=== PATIENT | female | born 1990 | race Two or more races ===

== ENCOUNTER 2016-05-20 11:58 | Emergency (ER) | payer MEDICAID ==
[~2016-05-20] VITALS: Ht 162.6 cm; Wt 108.9 kg
[2016-05-20 12:50] LABS: Basophils # (auto) 0.1 uL; Basophils % (auto) 0.6 % (0.0-2.0); Eosinophils # (auto) 0.2 uL; Eosinophils % (auto) 2.3 % (0.0-7.0); Hematocrit 36.4 % (36.0-46.0); Hemoglobin 11.9 g/dL (12.2-16.2); Lymphocytes # (auto) 2.7 uL; Lymphocytes % (auto) 25.4 % (10.0-50.0); Mean Corpuscular Hemoglobin 28.9 pg (28.0-32.0); Mean Corpuscular Hgb Conc. 32.7 g/dL (32.0-36.0); Mean Corpuscular Volume 88.4 fL (80.0-100.0); Mean Platelet Volume 11.1 fL (7.4-10.4); Monocytes # (auto) 0.8 uL; Monocytes % (auto) 7.6 % (0.0-12.0); Neutrophils # (auto) 6.7 uL; Neutrophils % (auto) 64.1 % (37.0-80.0); Platelet Count (auto) 253 10^3/uL (140-450); Red Cell Distribution Width 13.9 % (11.6-16.0); SUSPECT VIEW TRANSMISSION; White Blood Cell 10.5 10^3/uL (4.4-10.8)
[2016-05-20 13:04] LABS: Albumin 3.1 g/dL (3.4-5.0); BUN/Creatinine Ratio 21.5; Bilirubin, Total 0.4 mg/dL (0.2-1.0); Calcium 8.8 mg/dL (8.5-10.1); Potassium 3.5 mmol/L (3.5-5.1); Total Protein 7.4 g/dL (6.4-8.2)
[2016-05-20] MEDS: SODIUM CHLORIDE 0.9% 1,000 ML IV ONE (17:09)
[2016-05-20 17:24] LABS: Amylase 87 U/L (25-115)
[2016-05-20 18:29] LABS: Urine Bilirubin Negative (Negative); Urine Color Yellow (Yellow); Urine Ketone TRACE (Negative); Urine Mucus FEW (None Seen); Urine Nitrite Negative (Negative); Urine RBC 15 /hpf (0 - 4); Urine Squamous Epithelial Cell FEW /hpf (<5); Urine Urobilinogen Normal (Negative); Urine pH 6.5 (5.0-8.0)
[2016-05-20 18:30] LABS: Urine Blood 1+ /uL (Negative); Urine Glucose 2+ mg/dL (Normal)
[2016-05-20] MEDS: NITROFURANTOIN (MONO) 100 mg CAP PO ONE ×2 (19:37→19:45)
[2016-05-20 20:04] VITALS: BP 119/75
== END 2016-05-20 20:04 | disposition home or self-care (01) ==
LOC: EDBD 11:58 → ER 12:03
DX: N39.0 Urinary tract infection, site not specified (principal); Z88.6 Allergy status to analgesic agent
CPT/HCPCS: 36415; 80053; 81001; 82150; 83690; 84702; 85025; 87040; 96360; 96361

== ENCOUNTER 2016-06-02 11:10 | Emergency (ER) | payer MEDICAID ==
[~2016-06-02] VITALS: Ht 165.1 cm; Wt 104.3 kg
[2016-06-02] MEDS ORDERED: SODIUM CHLORIDE 0.9% 1,000 ML IVB ONE (11:33)
[2016-06-02 12:35] LABS: Basophils # (auto) 0 uL; Basophils % (auto) 0.4 % (0.0-2.0); Eosinophils # (auto) 0.3 uL; Hematocrit 32.5 % (36.0-46.0); Hemoglobin 10.5 g/dL (12.2-16.2); Lymphocytes # (auto) 2.3 uL; Lymphocytes % (auto) 30.9 % (10.0-50.0); Mean Corpuscular Hgb Conc. 32.2 g/dL (32.0-36.0); Mean Platelet Volume 11.3 fL (7.4-10.4); Monocytes # (auto) 0.7 uL; Monocytes % (auto) 9.6 % (0.0-12.0); Neutrophils # (auto) 4.1 uL; Neutrophils % (auto) 55.1 % (37.0-80.0); Platelet Count (auto) 206 10^3/uL (140-450); Red Cell Distribution Width 13.7 % (11.6-16.0); White Blood Cell 7.4 10^3/uL (4.4-10.8)
[2016-06-02 13:51] VITALS: BP 109/64
== END 2016-06-02 14:01 | disposition home or self-care (01) ==
LOC: EDBD 11:10 → ER 11:15
DX: N93.8 Other specified abnormal uterine and vaginal bleeding (principal); E11.9 Type 2 diabetes mellitus without complications; I10 Essential (primary) hypertension; Z88.6 Allergy status to analgesic agent; R19.7 Diarrhea, unspecified
CPT/HCPCS: 36415; 84702; 85025; 94761; 96360; 96361; 99285; J7030

== ENCOUNTER 2016-06-09 09:31 | Emergency (ER) | payer MEDICAID ==
[~2016-06-09] VITALS: Ht 160 cm; Wt 99.8 kg
[2016-06-09 09:36] VITALS: BP 168/108
[2016-06-09 10:51] LABS: Basophils # (auto) 0.1 uL; Basophils % (auto) 0.6 % (0.0-2.0); Eosinophils # (auto) 0.4 uL; Eosinophils % (auto) 3.7 % (0.0-7.0); Hematocrit 33.6 % (36.0-46.0); Hemoglobin 10.7 g/dL (12.2-16.2); Lymphocytes # (auto) 2.4 uL; Lymphocytes % (auto) 21.2 % (10.0-50.0); Mean Corpuscular Hemoglobin 28.6 pg (28.0-32.0); Mean Corpuscular Hgb Conc. 31.8 g/dL (32.0-36.0); Mean Corpuscular Volume 89.8 fL (80.0-100.0); Mean Platelet Volume 10.1 fL (7.4-10.4); Monocytes # (auto) 0.8 uL; Monocytes % (auto) 7.1 % (0.0-12.0); Neutrophils # (auto) 7.5 uL; Neutrophils % (auto) 67.4 % (37.0-80.0); Platelet Count (auto) 331 10^3/uL (140-450); Red Cell Distribution Width 13.8 % (11.6-16.0); White Blood Cell 11.2 10^3/uL (4.4-10.8)
[2016-06-09 11:01] LABS: Albumin 3.1 g/dL (3.4-5.0); BUN/Creatinine Ratio 23.2; Calcium 9.3 mg/dL (8.5-10.1)
[2016-06-09 11:04] LABS: Bilirubin, Total 0.3 mg/dL (0.2-1.0)
== END 2016-06-09 23:48 | disposition left against medical advice (07) ==
LOC: EDBD 09:31 → ER 09:33
DX: E11.621 Type 2 diabetes mellitus with foot ulcer (principal); Z53.21 Procedure and treatment not carried out due to patient leaving prior to being seen by health care provider
CPT/HCPCS: 36415; 73630; 80053; 85025

== ENCOUNTER 2016-06-10 10:27 | Emergency (ER) | payer MEDICAID ==
[~2016-06-10] VITALS: Ht 167.6 cm; Wt 104.3 kg
[2016-06-10] MEDS ORDERED: VANCOMYCIN 1GM/250ML D5W 250 ML IV ONE ×2 (13:15→15:00)
[2016-06-10] MEDS ORDERED: HYDROcodone-ACET 10/325MG TAB PO ONE (13:15)
[2016-06-10] MEDS ORDERED: PIPERACILLIN-TAZOB 3.375GM 100 ML IV ONE (13:15)
[2016-06-10] MEDS ORDERED: SODIUM CHLORIDE 0.9% 1,000 ML IV ONE (13:15)
[2016-06-10 14:16] VITALS: BP 149/49
[2016-06-10] MEDS ORDERED: SODIUM CHLORIDE 0.9% 1,000 ML IV SCH (14:17)
[2016-06-10] MEDS ORDERED: DEXTROSE (50%) 50ML SYRG IV PRN (14:30)
[2016-06-10] MEDS ORDERED: LORazepam 0.5 MG TAB PO PRN (14:30)
[2016-06-10] MEDS ORDERED: ACETAMINOPHEN 500 MG TAB PO PRN (14:30)
[2016-06-10] MEDS ORDERED: HYDROcodone-ACET 5/325MG TAB PO PRN (14:30)
[2016-06-10] MEDS ORDERED: TEMAZEPAM 15 MG CAP PO PRN (14:30)
[2016-06-10] MEDS ORDERED: VANCOMYCIN PER PHARMACY 0 MG IV SCH (14:30)
[2016-06-10] MEDS ORDERED: MORPHINE SULF INJ 2 MG/ML SYRINGE 1ML IV PRN (14:30)
[2016-06-10] MEDS ORDERED: LACTULOSE 20Gm/30ML SOLN PO PRN (14:30)
[2016-06-10] MEDS ORDERED: PROMETHAZINE HCL 25 MG/ML 1ML IV PRN (14:30)
[2016-06-10 14:31] LABS: Basophils # (auto) 0 uL; Basophils % (auto) 0.4 % (0.0-2.0); Eosinophils # (auto) 0.3 uL; Eosinophils % (auto) 3.2 % (0.0-7.0); Hematocrit 30.1 % (36.0-46.0); Hemoglobin 9.7 g/dL (12.2-16.2); Lymphocytes # (auto) 2.4 uL; Lymphocytes % (auto) 23.5 % (10.0-50.0); Mean Corpuscular Hemoglobin 28.5 pg (28.0-32.0); Mean Corpuscular Hgb Conc. 32.2 g/dL (32.0-36.0); Mean Corpuscular Volume 88.6 fL (80.0-100.0); Mean Platelet Volume 10.1 fL (7.4-10.4); Monocytes # (auto) 1.1 uL; Monocytes % (auto) 10.6 % (0.0-12.0); Neutrophils # (auto) 6.3 uL; Neutrophils % (auto) 62.3 % (37.0-80.0); Platelet Count (auto) 324 10^3/uL (140-450); Red Cell Distribution Width 13.5 % (11.6-16.0); White Blood Cell 10.1 10^3/uL (4.4-10.8)
[2016-06-10] MEDS ORDERED: ENOXAPARIN SOD 40 MG/0.4 ML SYRINGE SC SCH (14:45)
[2016-06-10 14:49] LABS: Albumin 2.9 g/dL (3.4-5.0); BUN/Creatinine Ratio 16.8; Bilirubin, Total 0.2 mg/dL (0.2-1.0); Potassium 3.8 mmol/L (3.5-5.1); Total Protein 7.8 g/dL (6.4-8.2)
[2016-06-10] MEDS ORDERED: VANCOMYCIN 1GM/250ML D5W 250 ML IV SCH (15:00)
[2016-06-10] MEDS ORDERED: ACCU-CHEK COMFORT CURVE STRIP VI SCH (17:00)
[2016-06-10] MEDS ORDERED: InsuLIN REG 1unit/0.01ml Soln (100units/ml) SC SCH (17:00)
[2016-06-10] MEDS ORDERED: PIPERACILLIN-TAZOB 3.375GM 100 ML IV SCH (20:00)
== END 2016-06-10 16:53 | disposition home or self-care (01) ==
LOC: EDBD 10:27 → ER 10:28
DX: E11.621 Type 2 diabetes mellitus with foot ulcer (principal); N39.0 Urinary tract infection, site not specified; I10 Essential (primary) hypertension; Z53.29 Procedure and treatment not carried out because of patient's decision for other reasons; Z88.8 Allergy status to other drugs, medicaments and biological substances; E66.01 Morbid (severe) obesity due to excess calories; Z68.37 Body mass index [BMI] 37.0-37.9, adult; L97.529 Non-pressure chronic ulcer of other part of left foot with unspecified severity
CPT/HCPCS: 36415; 73630; 80053; 82962; 83036; 85025; 85652; 87040; 96365; 96372; 96375; 99285; J1650; J2543; J7042; L3260

== ENCOUNTER 2016-06-22 07:09 | Emergency (ER) | payer MEDICAID ==
[~2016-06-22] VITALS: Ht 160 cm; Wt 113.4 kg
[2016-06-22 07:33] VITALS: BP 122/78
== END 2016-06-22 09:29 | disposition left against medical advice (07) ==
LOC: ER 07:09
DX: M79.602 Pain in left arm (principal); Z53.21 Procedure and treatment not carried out due to patient leaving prior to being seen by health care provider

== ENCOUNTER 2016-06-24 16:19 | Emergency (ER) | payer MEDICAID ==
[~2016-06-24] VITALS: Ht 157.5 cm; Wt 113.4 kg
[2016-06-24 16:40] VITALS: BP 119/85
[2016-06-24] MEDS ORDERED: IBUPROFEN 800 MG TAB PO ONE (18:00)
[2016-06-24] MEDS ORDERED: KETOROLAC TROMETH 60MG/2ML VIAL IM ONE (18:00)
== END 2016-06-24 18:10 | disposition home or self-care (01) ==
LOC: ER 16:19 → EDUNIT# 16:19 → ER 18:10
DX: H66.91 Otitis media, unspecified, right ear (principal); E11.9 Type 2 diabetes mellitus without complications; I10 Essential (primary) hypertension; Z88.6 Allergy status to analgesic agent
CPT/HCPCS: 96372; 99283; J1885

== ENCOUNTER 2016-09-11 20:04 | Emergency (ER) | payer MEDICAID ==
[~2016-09-11] VITALS: Ht 157.5 cm; Wt 125.6 kg
[2016-09-11 20:10] VITALS: BP 117/78
[2016-09-11] MEDS ORDERED: LIDOCAINE 1% HCL (LOCAL ANESTH.) INJ 20ML MDV IJ ONE (22:30)
[2016-09-11] MEDS ORDERED: BACITRACIN TOP OINT 1 UD PKG TOP ONE (22:30)
== END 2016-09-11 23:05 | disposition home or self-care (01) ==
LOC: ER 20:07
DX: S51.812A Laceration without foreign body of left forearm, initial encounter (principal); E11.9 Type 2 diabetes mellitus without complications; I10 Essential (primary) hypertension; W25.XXXA Contact with sharp glass, initial encounter; Y93.89 Activity, other specified; Y99.8 Other external cause status; Y92.89 Other specified places as the place of occurrence of the external cause; Z88.6 Allergy status to analgesic agent

== ENCOUNTER 2017-01-17 06:34 | Emergency (ER) | payer MEDICAID ==
[~2017-01-17] VITALS: Ht 157.5 cm; Wt 54.4 kg
[2017-01-17] MEDS ORDERED: cloNIDine HCL 0.1 MG TAB PO ONE (06:45)
[2017-01-17] MEDS ORDERED: SODIUM CHLORIDE 0.9% 1,000 ML IV ONE (09:19)
[2017-01-17 09:22] LABS: Urine Bilirubin Negative (Negative); Urine Blood 1+ /uL (Negative); Urine Color Yellow (Yellow); Urine Glucose 2+ mg/dL (Normal); Urine Ketone Negative (Negative); Urine Nitrite Negative (Negative); Urine RBC 7 /hpf (0 - 4); Urine Squamous Epithelial Cell FEW /hpf (<5); Urine Urobilinogen Normal (Negative); Urine pH 6.5 (5.0-8.0)
[2017-01-17 09:59] LABS: Basophils # (auto) 0.1 uL; Basophils % (auto) 0.5 % (0.0-2.0); Eosinophils # (auto) 0.3 uL; Eosinophils % (auto) 2.7 % (0.0-7.0); Hematocrit 34.1 % (36.0-46.0); Lymphocytes # (auto) 2.1 uL; Lymphocytes % (auto) 18.1 % (10.0-50.0); Mean Corpuscular Hgb Conc. 32.3 g/dL (32.0-36.0); Mean Corpuscular Volume 89.8 fL (80.0-100.0); Mean Platelet Volume 10.6 fL (6.9-10.8); Monocytes # (auto) 0.7 uL; Monocytes % (auto) 5.8 % (0.0-12.0); Neutrophils # (auto) 8.3 uL; Neutrophils % (auto) 72.9 % (37.0-80.0); Platelet Count (auto) 228 10^3/uL (140-450); Red Cell Distribution Width 13.5 % (11.8-14.3); White Blood Cell 11.4 10^3/uL (4.4-10.8)
[2017-01-17 10:07] LABS: Alkaline Phosphatase 138 U/L (45-117); Anion Gap 7 (5-15); Aspartate Aminotransferase 18 U/L (15-37); BUN/Creatinine Ratio 20.6; Bilirubin, Total 0.3 mg/dL (0.2-1.0); Blood Urea Nitrogen 22 mg/dL (7-18); Calcium 8.6 mg/dL (8.5-10.1); Carbon Dioxide 24 mmol/L (21-32); Chloride 105 mmol/L (98-107); GFR African American 79 mL/min; GFR Non-African American 65 mL/min; Glucose 282 mg/dL (74-106); Potassium 4.9 mmol/L (3.5-5.1); Sodium 136 mmol/L (136-145); Total Protein 7.8 g/dL (6.4-8.2)
[2017-01-17 11:09] VITALS: BP 135/89
== END 2017-01-17 11:14 | disposition home or self-care (01) ==
LOC: EDBD 06:34 → ER 06:39
DX: I10 Essential (primary) hypertension (principal); E11.9 Type 2 diabetes mellitus without complications; R51 Headache; Z79.4 Long term (current) use of insulin; Z88.6 Allergy status to analgesic agent
CPT/HCPCS: 36415; 80053; 81001; 81025; 84484; 85025; 96360; 99284; J7030

== ENCOUNTER 2017-01-19 03:48 | Emergency (ER) | payer MEDICAID ==
[~2017-01-19] VITALS: Ht 160 cm; Wt 90.7 kg
[2017-01-19 05:28] LABS: Albumin 2.8 g/dL (3.4-5.0); Bilirubin, Total 0.2 mg/dL (0.2-1.0); Calcium 8.1 mg/dL (8.5-10.1); Potassium 4.1 mmol/L (3.5-5.1); Total Protein 7.1 g/dL (6.4-8.2)
[2017-01-19 05:43] LABS: Basophils # (auto) 0.1 uL; Basophils % (auto) 0.8 % (0.0-2.0); Eosinophils # (auto) 0.4 uL; Eosinophils % (auto) 3.9 % (0.0-7.0); Hematocrit 30.9 % (36.0-46.0); Hemoglobin 10.2 g/dL (12.2-16.2); Lymphocytes # (auto) 2.5 uL; Mean Corpuscular Hemoglobin 29.4 pg (28.0-32.0); Mean Corpuscular Hgb Conc. 32.8 g/dL (32.0-36.0); Mean Corpuscular Volume 89.5 fL (80.0-100.0); Mean Platelet Volume 9.8 fL (6.9-10.8); Monocytes % (auto) 8.5 % (0.0-12.0); Neutrophils # (auto) 7.2 uL; Neutrophils % (auto) 64.8 % (37.0-80.0); Platelet Count (auto) 220 10^3/uL (140-450); Red Cell Distribution Width 13.1 % (11.8-14.3); White Blood Cell 11.2 10^3/uL (4.4-10.8)
[2017-01-19 06:20] VITALS: BP 137/88
[2017-01-19 07:07] LABS: Urine Bilirubin Negative (Negative); Urine Blood 1+ /uL (Negative); Urine Color Yellow (Yellow); Urine Glucose 2+ mg/dL (Normal); Urine Ketone Negative (Negative); Urine Nitrite Negative (Negative); Urine RBC 12 /hpf (0 - 4); Urine Squamous Epithelial Cell FEW /hpf (<5); Urine Urobilinogen Normal (Negative); Urine pH 6.5 (5.0-8.0)
== END 2017-01-19 07:58 | disposition home or self-care (01) ==
LOC: EDBD 03:48 → ER 03:52
DX: K52.9 Noninfective gastroenteritis and colitis, unspecified (principal); E11.9 Type 2 diabetes mellitus without complications; I10 Essential (primary) hypertension; Z88.6 Allergy status to analgesic agent
CPT/HCPCS: 36415; 74176; 80053; 81001; 83690; 84702

== ENCOUNTER 2018-02-09 17:44 | Emergency (ER) | payer MEDICAID ==
[~2018-02-09] VITALS: Ht 165.1 cm; Wt 138.3 kg
[2018-02-10] MEDS ORDERED: KETOROLAC TROMETH 60MG/2ML VIAL IM ONE (00:45)
[2018-02-10] MEDS ORDERED: HYDROcodone-ACET 5/325MG TAB PO ONE (00:45)
[2018-02-10 02:43] VITALS: BP 126/78
== END 2018-02-10 03:32 | disposition home or self-care (01) ==
LOC: EDBD 17:44 → ER 17:44
DX: S20.219A Contusion of unspecified front wall of thorax, initial encounter (principal); S30.1XXA Contusion of abdominal wall, initial encounter; E11.9 Type 2 diabetes mellitus without complications; I10 Essential (primary) hypertension; Z88.6 Allergy status to analgesic agent; V43.52XA Car driver injured in collision with other type car in traffic accident, initial encounter; Y93.89 Activity, other specified; Y92.488 Other paved roadways as the place of occurrence of the external cause; Y99.8 Other external cause status
CPT/HCPCS: 36415; 71045; 74176; 84702; 93005; 96372; 99285; J1885

== ENCOUNTER 2019-10-30 13:51 | Inpatient (IN) | payer MEDICAID ==
[~2019-10-30] VITALS: Ht 170.2 cm; Wt 159.8 kg
[2019-10-30 15:23] LABS: Basophils # (auto) 0.1 10 ^3/uL (0-0.2); Basophils % (auto) 0.7 % (0.0-2.0); Eosinophils # (auto) 0.3 10 ^3/uL (0-0.8); Eosinophils % (auto) 3.5 % (0.0-7.0); Hematocrit 30.4 % (36.0-46.0); Hemoglobin 9.6 g/dL (12.2-16.2); Lymphocytes # (auto) 1.4 10 ^3/uL (0.4-5.4); Lymphocytes % (auto) 17.5 % (10.0-50.0); Mean Corpuscular Hemoglobin 29.1 pg (28.0-32.0); Mean Corpuscular Hgb Conc. 31.6 g/dL (32.0-36.0); Mean Corpuscular Volume 92.2 fL (80.0-100.0); Monocytes # (auto) 0.9 10 ^3/uL (0-1.3); Monocytes % (auto) 11.3 % (0.0-12.0); Neutrophils # (auto) 5.3 10 ^3/uL (1.6-8.6); Nucleated Red Blood Cells % 0.2 %; Platelet Count (auto) 261 10^3/uL (140-450); Red Blood Cells 3.29 10^6/uL (4.0-5.20); Red Cell Distribution Width 16.5 % (11.8-14.3); White Blood Cell 7.9 10^3/uL (4.4-10.8)
[2019-10-30 15:42] LABS: Alanine Aminotransferase 32 U/L (13-56); Albumin 2.8 g/dL (3.4-5.0); Anion Gap 11 (5-15); Aspartate Aminotransferase 24 U/L (15-37); BUN/Creatinine Ratio 13.5; Carbon Dioxide 20 mmol/L (21-32); Chloride 105 mmol/L (98-107); GFR African American 9 mL/min; GFR Non-African American 7 mL/min; Glucose 196 mg/dL (74-106); Magnesium 2.6 mg/dL (1.6-2.6); Potassium 5.1 mmol/L (3.5-5.1); Sodium 136 mmol/L (136-145)
[2019-10-30 15:47] LABS: Alkaline Phosphatase 128 U/L (45-117); Bilirubin, Total 0.5 mg/dL (0.2-1.0); Total Protein 8.1 g/dL (6.4-8.2)
[2019-10-30 15:51] LABS: Blood Urea Nitrogen 97 mg/dL (7-18)
[2019-10-30] MEDS ORDERED: MORPHINE SULF INJ 2 MG/ML SYRINGE 1ML IV PRN (17:15)
[2019-10-30] MEDS ORDERED: TEMAZEPAM 15 MG CAP PO PRN (17:15)
[2019-10-30] MEDS ORDERED: NITROGLYCERIN 0.4 MG SL TAB SL PRN (17:15)
[2019-10-30] MEDS ORDERED: ONDANSETRON HCL 4 MG/2 ML VIAL IV PRN (17:15)
[2019-10-30] MEDS ORDERED: ACETAMINOPHEN 325 MG TAB PO PRN (17:15)
[2019-10-30] MEDS ORDERED: DEXTROSE (50%) 50ML SYRG IV PRN (17:30)
[2019-10-30 18:30] LABS: Free T4 (Free Thyroxine) 0.65 ng/dL (0.89-1.76)
[2019-10-30 18:31] LABS: Folate (Folic Acid) 13.63 ng/mL (5.38-24)
[2019-10-30] MEDS ORDERED: FERR325T20 PO (19:28)
[2019-10-30] MEDS ORDERED: METO5TAB56 PO (19:28)
[2019-10-30] MEDS ORDERED: DILT240C46 PO (19:28)
[2019-10-30] MEDS ORDERED: INSU100I44 SC (19:28)
[2019-10-30] MEDS ORDERED: CHOL1TAB16 PO (19:28)
[2019-10-30] MEDS ORDERED: FURO80TA3 PO (19:28)
[2019-10-30] MEDS ORDERED: NIFE1TAB30 PO (19:28)
[2019-10-30] MEDS ORDERED: FURO40TA4 PO (19:28)
[2019-10-30] MEDS ORDERED: INSU1INJ19 SC (19:28)
[2019-10-30] MEDS ORDERED: SEVE800T8 PO (19:29)
[2019-10-30] MEDS ORDERED: ONDA-144 PO (19:30)
[2019-10-30] MEDS ORDERED: LEVEMIR SC (21:36)
[2019-10-30 22:00] VITALS: BP 102/45
--- NOTE | 2019-10-30 22:00 | NUR ---
Telemetry admit from ER AMRITA SILVER admitted to Telemetry unit after SBAR received. Patient oriented to Katherine David RN primary RN, unit, room, bed, and unit policies regarding patient care and visiting hours. Patient now on continuous telemetry monitoring, tele box # 31 and telemetry reading on arrival to unit is SR . Patient placed on bedside oxygen at 2 Lpm/NC, weighed by bedscale and encouraged to call if they need something. All questions and concerns addressed, patient verbalized understanding, will continue to monitor Note:
--- NOTE | 2019-10-30 22:30 | NUR ---
Dr. Gay called and updated on patient's status. Received order at this time, patient to have her dialysis tomorrow.
[2019-10-30] MEDS: ACCU-CHEK COMFORT CURVE STRIP VI SCH (22:42)
[2019-10-30] MEDS: InsuLIN REG 1unit/0.01ml Soln (100units/ml) SC SCH (22:44)
[2019-10-30] MEDS ORDERED: FUROSEMIDE 20 MG/2 ML VIAL IV ONE (22:45)
[2019-10-30] MEDS: SODIUM CHLOR 0.9% PF (SALINE LOCK) 10ML VIAL/SYR IV SCH (22:45)
[2019-10-30 23:00] VITALS: BP 102/45
--- NOTE | 2019-10-30 23:00 | NUR ---
Noted DFU on 5th left toe, scabbed and no drainage present upon admission. Pictures taken for reference, wound consult in place, will continue care
[2019-10-31] VITALS (8 sets, daily range): BP systolic 102–142; BP diastolic 47–76
[2019-10-31] MEDS: ACCU-CHEK COMFORT CURVE STRIP VI SCH ×4 (06:31→22:04)
[2019-10-31] MEDS: SODIUM CHLOR 0.9% PF (SALINE LOCK) 10ML VIAL/SYR IV SCH ×3 (06:31→22:04)
[2019-10-31] MEDS: InsuLIN REG 1unit/0.01ml Soln (100units/ml) SC SCH ×4 (06:32→23:01)
[2019-10-31] MEDS ORDERED: SODIUM CHL 0.9% 1000 ML BAG XX ONE (09:30)
[2019-10-31 10:10] LABS: Basophils # (auto) 0.1 10 ^3/uL (0-0.2); Basophils % (auto) 1.3 % (0.0-2.0); Eosinophils # (auto) 0.3 10 ^3/uL (0-0.8); Eosinophils % (auto) 4.2 % (0.0-7.0); Hematocrit 29.7 % (36.0-46.0); Hemoglobin 9.3 g/dL (12.2-16.2); Lymphocytes # (auto) 1.6 10 ^3/uL (0.4-5.4); Lymphocytes % (auto) 23.6 % (10.0-50.0); Mean Corpuscular Hgb Conc. 31.3 g/dL (32.0-36.0); Mean Corpuscular Volume 92.4 fL (80.0-100.0); Monocytes # (auto) 0.8 10 ^3/uL (0-1.3); Monocytes % (auto) 12.1 % (0.0-12.0); Neutrophils # (auto) 4.1 10 ^3/uL (1.6-8.6); Neutrophils % (auto) 58.8 % (37.0-80.0); Nucleated Red Blood Cells % 0.2 %; Platelet Count (auto) 263 10^3/uL (140-450); Red Blood Cells 3.22 10^6/uL (4.0-5.20); Red Cell Distribution Width 16.7 % (11.8-14.3)
--- NOTE | 2019-10-31 10:23 | NUR ---
WOUND CARE NOTE: Wound care in to see patient per wound care request regarding wound that are noted present on admission. Bedside nurse took photograph of patient's wound upon admission for reference. Patient is 29 years old female with admitting diagnosis of Uremic Encephalopathy. Patient is resting in bed in Rm. 208. Patient is awake, alert and oriented. She's in no stated pain at this time. Patient reported that she's ambulatory and she's self turning and repositioning. Her Alfonso score is 21 . Noted dry scabbed wound in between distal L 4th and L5th toe. There's also 1x0.8x0.3cm open ulceration to her L plantar foot.Wound is pale pink with pink, yellow hyperkeratotic kari wound, scant serous drainage noted, no odor noted. Patient reported that she has had the L foot wound "for a long time...like years". She added that she's supposed to see a apprentice electrician but "I got busy and didn't get to it". Patient's wound care education given regarding Diabetic Foot Care, verbalized understanding. Cleansed patient's Lt. plantar foot wound with wound cleanser, applied Thera honey gel, covered with Opti foam, wrapped with Kerlix and secured with tape. Patient tolerated examination well and denies any other wound. RECOMMENDATION: Nursing to continue with Daily/PRN dressing change to Lt foot wound per MD order, dietary consult due to wounds, Podiatry consult, redistribute pressure points with pillows, continue monitoring by wound care while patient is hospitalized. Addendum: 10/31/19 at 1513 by Opal Newton RN Amended: Links added.
[2019-10-31 10:26] LABS: Calcium 7.9 mg/dL (8.5-10.1); Magnesium 3.1 mg/dL (1.6-2.6)
[2019-10-31 10:38] LABS: Albumin 2.9 g/dL (3.4-5.0); Bilirubin, Total 0.5 mg/dL (0.2-1.0); Phosphorus 8.4 mg/dL (2.5-4.90); Total Protein 8.1 g/dL (6.4-8.2); Uric Acid 8.3 mg/dL (2.6-6.0)
--- NOTE | 2019-10-31 11:00 | NUR ---
Dr. Ward said patient can have the Lovenox SC. ordered to get the list of POM.
[2019-10-31] MEDS: ENOXAPARIN SOD 30 MG/0.3 ML SYRINGE SC SCH (11:18)
[2019-10-31 11:31] LABS: % Iron Saturation 22.8 % (15-50)
[2019-10-31] MEDS: SEVELAMER 800 MG TAB PO SCH ×2 (12:00→18:19)
[2019-10-31 12:52] LABS: Hepatitis A Ab IgM Negative; Hepatitis B Core IgM Negative; Hepatitis B Surface Antigen Negative (Negative); Hepatitis C Antibody Negative (Negative)
--- NOTE | 2019-10-31 15:07 | NUR ---
Hemodialysis done. About 2.7 L off, BP = 171/88, Pulse rate = 86, RR = 18 as per Dialysis Nurse Rodrigo.
--- NOTE | 2019-10-31 15:59 | NUR ---
Assessment Patient is a 29-year-old female who is alert and oriented. Prior to admission patient lived home with her boyfriend and functioned independently. Patient informed me she has a walker, home oxygen and CPAP for home use. Patient informed me she was on dialysis with [facility] and stop going to the facility about a month ago due to an argument she had with an employee. Patient informed me she has not been getting her treatments since. Patient informed me she will return home to her prior living arrangements post discharge and her boyfriend will transport her home. Advised patient there is a social service consult for outpatient dialysis. Informed patient clinical information will be faxed to [facility]. Informed patient she has a right to participate in all discharge planning. Patient verbalized understanding and agreed to discharge plan home. Informed CAITLIN Cunningham. Faxed clinical information to [facility]. Pending Chair-Time. Addendum: 10/31/19 at 1602 by MARILY LUNDBERG Amended: Links added.
--- NOTE | 2019-10-31 19:30 | NUR ---
Opening Shift Note Assumed care of patient, awake and alert. No S/S of distress/SOB or pain. Instructed on POC and to call for assist PRN, patient verbalized understanding. Safety precaution in place, call light within reach, will continue to monitor for changes Q1hr and PRN.
[2019-10-31 20:49] LABS: Urine Bacteria MANY /hpf (None Seen); Urine Blood TRACE /uL (Negative); Urine Mucus FEW (None Seen); Urine Specific Gravity 1.015 (1.001-1.035); Urine WBC 158 /hpf (0 - 5); Urine WBC Clumps PRESENT /hpf (None Seen)
[2019-10-31 20:56] LABS: Amphetamine Screen, Urine NEGATIVE (NEGATIVE); Barbiturate Scree,Urine NEGATIVE (NEGATIVE); Benzodiazephine Screen, Urine NEGATIVE (NEGATIVE); Cannabinoid Screen, Urine NEGATIVE (NEGATIVE); Cocaine Screen, Urine NEGATIVE (NEGATIVE); Opiate Scree,Urine NEGATIVE (NEGATIVE); Phencyclidine Screen, Urine NEGATIVE (NEGATIVE)
[2019-10-31] MEDS ORDERED: EPOETIN ALFA 10,000 UNIT/1 ML VIAL SC ONE (21:00)
[2019-10-31] MEDS ORDERED: cefTRIAXone 1GM/50ML D5W 50 ML IV ONE (21:15)
--- NOTE | 2019-11-01 | NUR ---
Instructed patient the need for monique insertion to measure accurate I & O. Patient uncomfortable at this time. Provided patient measuring hat to use for the meantime whenever she urinates, patient verbalized understanding. Will convince again later
[2019-11-01 05:00] VITALS: BP 118/63
--- NOTE | 2019-11-01 05:16 | NUR ---
Encouraged patient again for monique insertion, patient still refused at this time. Patient stated. "I feel dirty I don't want to do it." Advised patient that this RN will help her clean up. Patient stated, "I don't want to do it at this time." Advised patient to just continue using the calibrated hat to measure urine output, patient verbalized understanding. Will endorse to dayshift RN
[2019-11-01] MEDS: SODIUM CHLOR 0.9% PF (SALINE LOCK) 10ML VIAL/SYR IV SCH ×3 (06:00→21:53)
[2019-11-01] MEDS ORDERED: SODIUM CHL 0.9% 1000 ML BAG XX ONE (06:30)
--- NOTE | 2019-11-01 06:30 | NUR ---
Dialysis nurse at bedside
[2019-11-01] MEDS: LEVOTHYROXINE SODIUM 25 MCG TAB PO SCH (06:38)
[2019-11-01] MEDS: ACCU-CHEK COMFORT CURVE STRIP VI SCH ×4 (06:38→21:55)
[2019-11-01] MEDS: InsuLIN REG 1unit/0.01ml Soln (100units/ml) SC SCH ×4 (06:44→21:58)
--- NOTE | 2019-11-01 07:10 | NUR ---
OPENING NOTE Assumed care of patient at 0700. Respiratory sounds clear, unlabored and equal bilaterally. Patient verbalized that she is not having any pain at this time. Updated patient on POC. Bed locked in lowest position, HOB elevated at least 30 degrees and call light is within reach, side rails up x 2. Will continue to monitor.
[2019-11-01 08:00] VITALS: BP 136/74
[2019-11-01] MEDS: SEVELAMER 800 MG TAB PO SCH ×3 (08:36→18:00)
[2019-11-01 09:00] VITALS: BP 136/74
[2019-11-01] MEDS: ENOXAPARIN SOD 30 MG/0.3 ML SYRINGE SC SCH (09:34)
[2019-11-01 10:47] LABS: Basophils # (auto) 0 10 ^3/uL (0-0.2); Basophils % (auto) 0.9 % (0.0-2.0); Eosinophils # (auto) 0.2 10 ^3/uL (0-0.8); Eosinophils % (auto) 4.7 % (0.0-7.0); Hematocrit 32.7 % (36.0-46.0); Hemoglobin 10.5 g/dL (12.2-16.2); Lymphocytes % (auto) 18.9 % (10.0-50.0); Mean Corpuscular Hemoglobin 28.9 pg (28.0-32.0); Mean Corpuscular Volume 90.3 fL (80.0-100.0); Monocytes # (auto) 0.7 10 ^3/uL (0-1.3); Monocytes % (auto) 14.1 % (0.0-12.0); Neutrophils # (auto) 3.1 10 ^3/uL (1.6-8.6); Neutrophils % (auto) 61.4 % (37.0-80.0); Nucleated Red Blood Cells % 0.1 %; Platelet Count (auto) 207 10^3/uL (140-450); Red Blood Cells 3.62 10^6/uL (4.0-5.20); Red Cell Distribution Width 16.2 % (11.8-14.3); White Blood Cell 5.1 10^3/uL (4.4-10.8)
[2019-11-01 11:05] LABS: BUN/Creatinine Ratio 11.2; Calcium 7.7 mg/dL (8.5-10.1); Potassium 3.5 mmol/L (3.5-5.1)
[2019-11-01] MEDS: SODIUM FERR GLUC 62.5MG/5ML 125 MG in SODIUM CHL 0.9% 100 ML IV SCH (12:35)
[2019-11-01 13:00] VITALS: BP 159/87
--- NOTE | 2019-11-01 13:46 | NUR ---
re-assessment Per Roberth at [facility] they are working on financial and medical clearance. Chair time still pending. Addendum: 11/01/19 at 1348 by Mickie LUNDBERG Amended: Links added.
--- NOTE | 2019-11-01 14:54 | NUR ---
re-assessment Quality Manager faxed pt[facility] pt. Quality Manager faxed authorization request to [facility]. Quality Manager updated bedside Rn. SS to remain available as needed.
--- NOTE | 2019-11-01 16:00 | NUR ---
Patient went for CT scan of left foot.
--- NOTE | 2019-11-01 16:03 | NUR ---
Est energy need 0772-8493 kcal (25-30 kcal/kg IBW 61.4kg) Est protein needs 92-122g (1.5-2g/kg IBW 61.4kg, wound, CKD on HD) Will reassess prn. Addendum: 11/01/19 at [address] Amended: Links added.
--- NOTE | 2019-11-01 16:24 | NUR ---
re-assessment pt was accepted by [facility]. [facility] gave authorization [id number]. Dice Table Operator updated bedside Rn santino. SS to remain available as needed.
--- NOTE | 2019-11-01 16:37 | NUR ---
Home health for wound care set up per dialysis social worker.
[2019-11-01 17:10] VITALS: BP 158/87
--- NOTE | 2019-11-01 20:00 | NUR ---
Opening Shift Note Assumed care of patient. Awake, alert and oriented x4. No S/S of distress/SOB or pain. Patient is sitting up in bed, nasal cannula on at 2L with even and unlabored respirations. Instructed on POC and to call for assist PRN. Bed locked, in lowest position, call light within reach, side rails up x2. Will continue to monitor for changes Q1hr and PRN.
--- NOTE | 2019-11-01 20:15 | NUR ---
Received call from MD Perez New orders received. Will continue with care.
[2019-11-01] MEDS ORDERED: EPOETIN ALFA 10,000 UNIT/1 ML VIAL SC ONE (21:00)
[2019-11-01] MEDS: NYSTATIN-TRIAMCINOLONE TOPICAL CRE 15GM TOP SCH (21:55)
[2019-11-01 22:00] VITALS: BP 165/90
[2019-11-01] MEDS ORDERED: cefTRIAXone 1GM/50ML D5W 50 ML IV SCH (22:00)
[2019-11-02 05:23] VITALS: BP 132/75
[2019-11-02] MEDS: ACCU-CHEK COMFORT CURVE STRIP VI SCH ×4 (06:31→21:52)
[2019-11-02] MEDS: LEVOTHYROXINE SODIUM 25 MCG TAB PO SCH (06:31)
[2019-11-02] MEDS: SODIUM CHLOR 0.9% PF (SALINE LOCK) 10ML VIAL/SYR IV SCH ×3 (06:31→21:51)
[2019-11-02] MEDS: InsuLIN REG 1unit/0.01ml Soln (100units/ml) SC SCH ×4 (06:35→21:54)
[2019-11-02 06:37] LABS: Hematocrit 31.5 % (36.0-46.0); Hemoglobin 9.9 g/dL (12.2-16.2); Mean Corpuscular Hemoglobin 28.8 pg (28.0-32.0); Mean Corpuscular Hgb Conc. 31.5 g/dL (32.0-36.0); Mean Corpuscular Volume 91.5 fL (80.0-100.0); Platelet Count (auto) 194 10^3/uL (140-450); Red Blood Cells 3.45 10^6/uL (4.0-5.20); White Blood Cell 5.2 10^3/uL (4.4-10.8)
[2019-11-02 06:52] LABS: BUN/Creatinine Ratio 11.9; Calcium 7.7 mg/dL (8.5-10.1); Potassium 4.1 mmol/L (3.5-5.1)
[2019-11-02 07:09] LABS: Basophils % (manual) 0 (0.0-2.0); Blast Cells 0; Metamyelocytes % 0; Myelocytes % 0; Promyelocytes % 0; Reactive Lymphocytes 0
[2019-11-02 07:58] LABS: Band Neutrophils % (manual) 5; Eosinophils % (manual) 7 (0-7); Lymphocytes % (manual) 22 (10.0-50.0); Monocytes % (manual) 16 (0-12)
[2019-11-02 08:30] VITALS: BP 133/76
[2019-11-02] MEDS: SEVELAMER 800 MG TAB PO SCH ×3 (09:04→17:56)
[2019-11-02] MEDS: ENOXAPARIN SOD 30 MG/0.3 ML SYRINGE SC SCH (09:04)
--- NOTE | 2019-11-02 09:59 | NUR ---
Received a call from MRI regarding unable to get MRI done due to patient is overweigh. Will paged Dr. Perez.
--- NOTE | 2019-11-02 10:03 | NUR ---
Left a message to Dr. Perez regarding MRI. Awaiting to call back.
--- NOTE | 2019-11-02 11:32 | NUR ---
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 Per lilly sup will call me back.
[2019-11-02] MEDS: AMPICILLIN & SULBACTAM SODIUM 3 GM in SODIUM CHL 0.9% 100 ML IV SCH ×2 (11:34→21:52)
--- NOTE | 2019-11-02 12:09 | NUR ---
Received a call from [facility] regarding patient has positive ESBL from urine. CN notified. Dr. Ward aware.
--- NOTE | 2019-11-02 12:30 | NUR ---
Wound dressing changed to the left foot.
[2019-11-02] MEDS: SODIUM FERR GLUC 62.5MG/5ML 125 MG in SODIUM CHL 0.9% 100 ML IV SCH (12:55)
[2019-11-02] MEDS: NYSTATIN-TRIAMCINOLONE TOPICAL CRE 15GM TOP SCH ×2 (12:55→21:52)
[2019-11-02 13:11] VITALS: BP 164/91
[2019-11-02] MEDS ORDERED: levoFLOXacin 750MG 150 ML IV SCH (16:30)
--- NOTE | 2019-11-02 17:00 | NUR ---
Spoke to Dr. Ward paged regarding BP 169/92 HR 83. Received new orders, noted and carried it out.
[2019-11-02 17:12] VITALS: BP 158/77
[2019-11-02] MEDS ORDERED: amLODIPine BESYLATE 5 MG TAB PO ONE (17:15)
[2019-11-02] MEDS: ERTAPENEM SOD INJ 0.5 GM in SODIUM CHL 0.9% 50 ML IV SCH (17:56)
[2019-11-02 17:57] VITALS: BP 169/84
[2019-11-02] MEDS: cloNIDine HCL 0.1 MG TAB PO PRN (18:31)
--- NOTE | 2019-11-02 20:00 | NUR ---
Opening Shift Note Assumed care of patient. Awake, alert and oriented x4. No S/S of distress/SOB or pain. Patient is sitting up in bed, nasal cannula in place at 3L, with even and unlabored respirations. Instructed on POC and to call for assist PRN. Bed locked, in lowest position, call light within reach, side rails up x2. Will continue to monitor for changes Q1hr and PRN.
[2019-11-02 22:00] VITALS: BP 169/74
[2019-11-03 05:00] VITALS: BP 124/70
--- NOTE | 2019-11-03 05:01 | NUR ---
Pt requesting lab comes back at later time Lab will attempt again at 0930, as per lab manager.
[2019-11-03] MEDS: ACCU-CHEK COMFORT CURVE STRIP VI SCH ×4 (06:04→21:24)
[2019-11-03] MEDS: SODIUM CHLOR 0.9% PF (SALINE LOCK) 10ML VIAL/SYR IV SCH ×3 (06:04→21:23)
[2019-11-03] MEDS: LEVOTHYROXINE SODIUM 25 MCG TAB PO SCH (06:04)
[2019-11-03] MEDS: InsuLIN REG 1unit/0.01ml Soln (100units/ml) SC SCH ×4 (06:06→21:29)
[2019-11-03 09:06] VITALS: BP 138/85
[2019-11-03] MEDS: SEVELAMER 800 MG TAB PO SCH ×3 (09:07→17:39)
[2019-11-03] MEDS: amLODIPine BESYLATE 5 MG TAB PO SCH (09:08)
[2019-11-03] MEDS: ENOXAPARIN SOD 30 MG/0.3 ML SYRINGE SC SCH (09:08)
[2019-11-03] MEDS: AMPICILLIN & SULBACTAM SODIUM 3 GM in SODIUM CHL 0.9% 100 ML IV SCH ×2 (09:09→21:23)
[2019-11-03 10:44] LABS: Basophils # (auto) 0.1 10 ^3/uL (0-0.2); Basophils % (auto) 1.3 % (0.0-2.0); Eosinophils # (auto) 0.3 10 ^3/uL (0-0.8); Eosinophils % (auto) 4.6 % (0.0-7.0); Hematocrit 32.6 % (36.0-46.0); Hemoglobin 10.5 g/dL (12.2-16.2); Lymphocytes # (auto) 1.3 10 ^3/uL (0.4-5.4); Lymphocytes % (auto) 22.3 % (10.0-50.0); Mean Corpuscular Hemoglobin 29.5 pg (28.0-32.0); Mean Corpuscular Hgb Conc. 32.2 g/dL (32.0-36.0); Mean Corpuscular Volume 91.7 fL (80.0-100.0); Monocytes # (auto) 0.7 10 ^3/uL (0-1.3); Neutrophils # (auto) 3.4 10 ^3/uL (1.6-8.6); Neutrophils % (auto) 59.8 % (37.0-80.0); Nucleated Red Blood Cells % 0.1 %; Platelet Count (auto) 204 10^3/uL (140-450); Red Blood Cells 3.56 10^6/uL (4.0-5.20); Red Cell Distribution Width 15.8 % (11.8-14.3); White Blood Cell 5.7 10^3/uL (4.4-10.8)
[2019-11-03 11:36] LABS: Potassium 4.3 mmol/L (3.5-5.1)
[2019-11-03 11:41] LABS: BUN/Creatinine Ratio 11.9; Calcium 8.1 mg/dL (8.5-10.1)
[2019-11-03] MEDS: NYSTATIN-TRIAMCINOLONE TOPICAL CRE 15GM TOP SCH ×2 (12:42→21:23)
[2019-11-03] MEDS: DAKINS QUARTER STR 0.125% (NaHypochlorite) 473 ML TOPICAL SOL TOP SCH (12:42)
[2019-11-03] MEDS: SODIUM FERR GLUC 62.5MG/5ML 125 MG in SODIUM CHL 0.9% 100 ML IV SCH (12:42)
[2019-11-03] MEDS: cloNIDine HCL 0.1 MG TAB PO PRN (12:43)
[2019-11-03 12:57] VITALS: BP 161/98
--- NOTE | 2019-11-03 14:30 | NUR ---
Wound dressing changed to right foot.
[2019-11-03] MEDS: ERTAPENEM SOD INJ 0.5 GM in SODIUM CHL 0.9% 50 ML IV SCH (17:39)
[2019-11-03 22:00] VITALS: BP 159/94
[2019-11-04 05:00] VITALS: BP 129/69
--- NOTE | 2019-11-04 05:23 | NUR ---
Pt requesting lab to come back at later time
[2019-11-04] MEDS: LEVOTHYROXINE SODIUM 25 MCG TAB PO SCH (06:10)
[2019-11-04] MEDS: SODIUM CHLOR 0.9% PF (SALINE LOCK) 10ML VIAL/SYR IV SCH ×3 (06:10→21:37)
[2019-11-04] MEDS: ACCU-CHEK COMFORT CURVE STRIP VI SCH ×4 (06:11→21:57)
[2019-11-04] MEDS: InsuLIN REG 1unit/0.01ml Soln (100units/ml) SC SCH ×4 (06:14→22:00)
--- NOTE | 2019-11-04 07:25 | NUR ---
Opening Shift Note Assumed care of patient, awake and alert. No S/S of distress/SOB or pain. Respirations are even and unlabored. Updated on POC and instructed to call for assistance as needed, patient verbalized understanding. Bed locked in lowest position, side rails up x2, call light within reach. Will continue to monitor for changes Q1hr and PRN.
--- NOTE | 2019-11-04 07:40 | NUR ---
SCROLL SAW OPERATOR AT BEDSIDE
[2019-11-04 08:00] VITALS: BP 184/89
[2019-11-04] MEDS: SEVELAMER 800 MG TAB PO SCH ×4 (08:00→17:31)
[2019-11-04 09:26] LABS: Basophils # (auto) 0 10 ^3/uL (0-0.2); Basophils % (auto) 0.6 % (0.0-2.0); Eosinophils # (auto) 0.4 10 ^3/uL (0-0.8); Eosinophils % (auto) 4.7 % (0.0-7.0); Hematocrit 33.1 % (36.0-46.0); Hemoglobin 10.8 g/dL (12.2-16.2); Lymphocytes # (auto) 1.5 10 ^3/uL (0.4-5.4); Lymphocytes % (auto) 20.1 % (10.0-50.0); Mean Corpuscular Hemoglobin 29.4 pg (28.0-32.0); Mean Corpuscular Hgb Conc. 32.6 g/dL (32.0-36.0); Mean Corpuscular Volume 90.2 fL (80.0-100.0); Monocytes # (auto) 0.8 10 ^3/uL (0-1.3); Neutrophils # (auto) 4.8 10 ^3/uL (1.6-8.6); Neutrophils % (auto) 63.6 % (37.0-80.0); Nucleated Red Blood Cells % 0.2 %; Platelet Count (auto) 204 10^3/uL (140-450); Red Blood Cells 3.67 10^6/uL (4.0-5.20); Red Cell Distribution Width 15.8 % (11.8-14.3); White Blood Cell 7.6 10^3/uL (4.4-10.8)
[2019-11-04] MEDS ORDERED: SODIUM CHL 0.9% 1000 ML BAG XX ONE (10:45)
[2019-11-04] MEDS: ENOXAPARIN SOD 30 MG/0.3 ML SYRINGE SC SCH (10:48)
[2019-11-04] MEDS: amLODIPine BESYLATE 5 MG TAB PO SCH (10:48)
[2019-11-04] MEDS: DAKINS QUARTER STR 0.125% (NaHypochlorite) 473 ML TOPICAL SOL TOP SCH (10:49)
[2019-11-04] MEDS: AMPICILLIN & SULBACTAM SODIUM 3 GM in SODIUM CHL 0.9% 100 ML IV SCH ×2 (10:49→21:37)
[2019-11-04] MEDS: NYSTATIN-TRIAMCINOLONE TOPICAL CRE 15GM TOP SCH ×2 (10:49→21:57)
[2019-11-04] MEDS: cloNIDine HCL 0.1 MG TAB PO PRN ×2 (11:05→17:31)
--- NOTE | 2019-11-04 11:06 | NUR ---
DIALYSIS COMPLETE PER SHRIMP PACKER, 3L WAS REMOVED PATIENT TOLERATED WELL. CURRENT BP 172/75, WILL MEDICATE PER MD ORDERS WITH PRN BLOOD PRESSURE MEDICATION.
[2019-11-04] MEDS ORDERED: OPTISON 3ml Vial for INJ IV ONE (11:51)
[2019-11-04 12:00] VITALS: BP 158/87
[2019-11-04] MEDS: SODIUM FERR GLUC 62.5MG/5ML 125 MG in SODIUM CHL 0.9% 100 ML IV SCH (12:28)
--- NOTE | 2019-11-04 12:41 | NUR ---
MEDICATION ADMINISTRATION PATIENT ONLY TOOK 2 OUT OF 4 RENAGEL TABLETS. REFUSED TO TAKE OTHER 2 TABLETS. PATIENT STATES "IT HURTS MY THROAT TO SWALLOW THAT MANY"
--- NOTE | 2019-11-04 13:00 | NUR ---
DR DUEÑAS AT BEDSIDE
--- NOTE | 2019-11-04 13:03 | NUR ---
IV removal IV DC'd with clean sterile technique, catheter fully intact. Pressure dressing applied to site. Patient tolerated well. NOTE: [IV LEAKING AND PAINFUL]
--- NOTE | 2019-11-04 13:03 | NUR ---
PATIENT REFUSED IV PLACEMENT PATIENT IS REFUSING TO HAVE AN IV PLACED AT THIS TIME, PATIENT STATES MAYBE AFTER LUNCH. EDUCATED ON IMPORTANCE OF IV ACCESS DURING HOSPITAL VISIT, PATIENT CONTINUES TO REFUSE. WILL ATTEMPT AT ANOTHER TIME.
--- NOTE | 2019-11-04 14:35 | NUR ---
Nutrition Followup Notes Pt wt is 54.4 kg/m2 Pt was sleeping, on HD, with no relatives at bedside when rounded this morning. Pt is with a Renal Standard diet, appetite is poor aeb ave 30% PO intake over 9 meals in 3 days. Pt with no noted distress per RN doc. Will continue to monitor PO status, skin status, pertinent labs and weight trends. Will f/u in 3-5 days. Est energy need 9290-4525 kcal (25-30 kcal/kg IBW 61.4kg) Est protein needs 92-122g (1.5-2g/kg IBW 61.4kg, wound, CKD on HD) Will reassess prn. LABS: poc GLUC 249 H, A1c 8.3 H, ALB 2.9 L, BUN 65 H, CR 5.44 H, GFR 10 L GI: Pt had 1 BM on 11/03 per RN doc. BS: 19 low risk. Refer to wound assessment report for full details. PES: Obesity r/t caloric intake in excess of needs aeb pt BMI is 54.6kg/m2 Altered nutrition related labs r/t chronic medical condition aeb pt with elevated RFTs, hyperglycemia, hypoalb Comments 1) Continue to monitor po intake, labs, skin 2) Refer pt to CDE on Dc 3) Continue current plan of care
--- NOTE | 2019-11-04 16:02 | NUR ---
Midline Placement: Patient educated on need for midline placement. All risks and benefits explained and all questions and concerns addresses prior to procedure. 18g/10cm midline inserted via left cephalic vein using Ultrasound. Sterile technique utilized. Blood return obtained from lumen and flushed easily with NS using proper technique. Midline secured with saline lock; biodisc and occlusive dressing applied. Primary RN notified. Midline lot # [id number]
--- NOTE | 2019-11-04 16:32 | NUR ---
PAGED DR DUEÑAS REGARDING PATIENT HIGH BLOOD PRESSURE.
[2019-11-04 17:00] VITALS: BP 181/75
--- NOTE | 2019-11-04 17:08 | NUR ---
D/C planning Chair time is still pending.
[2019-11-04] MEDS: ERTAPENEM SOD INJ 0.5 GM in SODIUM CHL 0.9% 50 ML IV SCH (17:31)
[2019-11-04 20:53] LABS: BUN/Creatinine Ratio 9.7; Potassium 4.3 mmol/L (3.5-5.1)
[2019-11-04] MEDS ORDERED: EPOETIN ALFA 4,000 UNIT/ML VL SC ONE (21:00)
[2019-11-04 22:00] VITALS: BP 158/96
--- NOTE | 2019-11-04 22:45 | NUR ---
PATIENT REFUSED Patient is refusing to finish IV antibiotics. She states that the IV alarm is going off to often. Patient has been educated on the importance of the antibiotics. Patient verbalized understanding but continues to refuse.
[2019-11-04 23:32] VITALS: BP 127/72
[2019-11-05] VITALS (7 sets, daily range): BP systolic 129–161; BP diastolic 61–93
[2019-11-05] MEDS: SODIUM CHLOR 0.9% PF (SALINE LOCK) 10ML VIAL/SYR IV SCH ×3 (06:00→21:21)
[2019-11-05] MEDS: ACCU-CHEK COMFORT CURVE STRIP VI SCH ×4 (07:00→21:57)
[2019-11-05] MEDS: InsuLIN REG 1unit/0.01ml Soln (100units/ml) SC SCH ×4 (07:00→22:08)
[2019-11-05] MEDS: LEVOTHYROXINE SODIUM 25 MCG TAB PO SCH (07:00)
--- NOTE | 2019-11-05 07:35 | NUR ---
Opening Shift Note Assumed care of patient, awake and alert. No S/S of distress/SOB or pain. Respirations are even and unlabored. Updated on POC and instructed to call for assistance as needed, patient verbalized understanding. Bed locked in lowest position, side rails up x2, call light within reach. Will continue to monitor.
[2019-11-05] MEDS: SEVELAMER 800 MG TAB PO SCH ×3 (08:00→16:58)
--- NOTE | 2019-11-05 08:45 | NUR ---
D/C Planning Regarding social service consult for home health IV abx Invans for 12 days. JAYLAN Gaona will work on IV abx. Faxed updated order to [facility]. Regarding outpatient dialysis. Placed followed up called to Norma with [facility] at 8:30 and left a message regarding chair time. Addendum: 11/05/19 at 1119 by MARILY LAO SS D/C Planning Regarding social service consult for home health IV abx Invans for 12 days. JAYLAN Gaona will work on IV abx. Faxed updated order to [facility]. Regarding outpatient dialysis. Placed followed up called to Norma with [facility] at 8:30 and left a message regarding chair time.
[2019-11-05] MEDS: AMPICILLIN & SULBACTAM SODIUM 3 GM in SODIUM CHL 0.9% 100 ML IV SCH ×3 (09:49→21:21)
[2019-11-05] MEDS: DAKINS QUARTER STR 0.125% (NaHypochlorite) 473 ML TOPICAL SOL TOP SCH (09:50)
[2019-11-05] MEDS: amLODIPine BESYLATE 5 MG TAB PO SCH (09:50)
[2019-11-05] MEDS: NYSTATIN-TRIAMCINOLONE TOPICAL CRE 15GM TOP SCH ×2 (09:50→21:57)
[2019-11-05] MEDS: ENOXAPARIN SOD 30 MG/0.3 ML SYRINGE SC SCH (09:50)
--- NOTE | 2019-11-05 11:19 | NUR ---
D/C Planning Regarding social service consult for home health IV abx Invans for 12 days. JAYLAN Gaona will work on IV abx. Faxed updated order to [facility]. Regarding outpatient dialysis. Placed followed up called to Norma Young at 8:30 and left a message regarding chair time.
[2019-11-05] MEDS: SODIUM FERR GLUC 62.5MG/5ML 125 MG in SODIUM CHL 0.9% 100 ML IV SCH (13:41)
--- NOTE | 2019-11-05 14:41 | NUR ---
1315 11/05/19 - Faxed to [facility] face sheet, order for home IV ABx Invanz 1gm QD x 12 days, H/P, labs, meds progress notes, midline note.
--- NOTE | 2019-11-05 18:25 | NUR ---
PATIENT REFUSED TO START IV ABX AT THIS TIME STATES TO HANG AFTER DINNER. WILL ENDORSE TO GEOLOGY INSTRUCTOR RN.
--- NOTE | 2019-11-05 19:45 | NUR ---
NOTIFIED PHARMACY THAT INVANZ WAS NOT ADMINISTERED AT 1800. INVANZ IS MISSING AT THE [facility]. WILL SEND A NEW ANBX. WILL FOLLOW UP.
[2019-11-05] MEDS: ERTAPENEM SOD INJ 0.5 GM in SODIUM CHL 0.9% 50 ML IV SCH (21:18)
[2019-11-05] MEDS: cloNIDine HCL 0.1 MG TAB PO PRN (21:56)
--- NOTE | 2019-11-05 22:00 | NUR ---
OFFERED A DRESSING CHANGE ON THE RIGHT FOOT, BUT PATIENT REFUSED. SHE WANTED IT CHANGE IN THE MORNING. DRESSING AT THIS TIME IS CLEAN, DRY AND INTACT. EXPLAINED TO PATIENT THAT DRESSING HAS NOT BEEN CHANGED SINCE 11/03/19. SHE IS AWARE AND STILL PREFERRED TO GET IT CHANGE IN THE MORNING. NOTED.
[2019-11-06 04:56] VITALS: BP 141/74
[2019-11-06] MEDS: SODIUM CHLOR 0.9% PF (SALINE LOCK) 10ML VIAL/SYR IV SCH ×3 (06:13→23:28)
[2019-11-06] MEDS: LEVOTHYROXINE SODIUM 25 MCG TAB PO SCH (06:13)
[2019-11-06] MEDS: ACCU-CHEK COMFORT CURVE STRIP VI SCH ×4 (06:14→23:28)
[2019-11-06] MEDS: InsuLIN REG 1unit/0.01ml Soln (100units/ml) SC SCH ×3 (06:43→18:17)
--- NOTE | 2019-11-06 08:20 | NUR ---
Barrie Patient took two tablets only and refused the other two. Patient states that they are too big and if feels like it is not passing her throat. She also noted that she takes only two tablets at home. MD will be notified.
[2019-11-06] MEDS: SEVELAMER 800 MG TAB PO SCH ×3 (08:24→18:12)
[2019-11-06] MEDS ORDERED: SODIUM CHL 0.9% 1000 ML BAG XX ONE (08:30)
[2019-11-06 08:59] VITALS: BP 140/82
[2019-11-06] MEDS: amLODIPine BESYLATE 5 MG TAB PO SCH (10:00)
[2019-11-06] MEDS: DAKINS QUARTER STR 0.125% (NaHypochlorite) 473 ML TOPICAL SOL TOP SCH (10:09)
[2019-11-06] MEDS: ENOXAPARIN SOD 30 MG/0.3 ML SYRINGE SC SCH (10:09)
[2019-11-06] MEDS: NYSTATIN-TRIAMCINOLONE TOPICAL CRE 15GM TOP SCH (10:09)
[2019-11-06] MEDS: AMPICILLIN & SULBACTAM SODIUM 3 GM in SODIUM CHL 0.9% 100 ML IV SCH ×2 (10:09→23:24)
--- NOTE | 2019-11-06 10:30 | NUR ---
Dialysis nurse at bedside.
--- NOTE | 2019-11-06 11:32 | NUR ---
Rasheeda followed up called to Norma with [facility] and left a voicemail message at 10:30 regarding chair time.
--- NOTE | 2019-11-06 11:40 | NUR ---
Hospitalist Rounding Dr. Ward at bedside. Patient states she was receiving dialysis at [facility] in the past but there was some issue. Now she doesn't go anywhere. Dr. Ward informed her that without a chair time she cannot be discharged. Dialysis centers have not accepted her for treatment. Patient is willing to go anywhere she can have dialysis done at this time. She does not want to remain in the hospital.
--- NOTE | 2019-11-06 11:48 | NUR ---
D/C planning Dr. Ward advised me patient wants to received dialysis in [place]. Faxed clinical information to [facility]. Pending Chair-Time acceptance.
--- NOTE | 2019-11-06 11:50 | NUR ---
Framing And Hanging Rounded Dr. Bonner at bedside. Informed him that patient refused Renagel x 2 tabs this morning. He instructed the patient on the purpose of the medication and that she does not make decision regarding the dosage she takes, it is based on her labs. Patient stated that she will take tablets. As per Dr. Bonner, they will accept the patient for dialysis.
--- NOTE | 2019-11-06 15:20 | NUR ---
Dialysis ended 4L off. B/P 115/89, P. 81.
--- NOTE | 2019-11-06 15:57 | NUR ---
D/C Planning Placed follow up called to Norma Young at 15:48 regarding chair time for patient. Per Norma [facility] patient chair time will be on M, W, F at 14:15. First treatment will be at 13:45 for intake on Monday [id number] [address] [facility] JAYLAN Fermin will confirmed IV abx ETA before patient can be discharge.
--- NOTE | 2019-11-06 16:18 | NUR ---
Called [facility] care infusion for home antibiotics twice and left a message for Mae [phone], gave her the number for the unit the patient is on [phone] ext [phone]. Patient is [facility] room [address]A
[2019-11-06 16:47] VITALS: BP 120/77
--- NOTE | 2019-11-06 16:47 | NUR ---
[facility] As per Cindy, she will call tomorrow morning to check on patient's discharge. They can arrange for antibiotic to be delivered to the patient's home between 12 and 2pm and for SOC to be tomorrow afternoon. Nurse would not be available for 1800 treatment. Addendum: 11/06/19 at 1754 by MICHELLE LAKHANI RN [facility] As per Cindy, she will call tomorrow morning to check on patient's discharge. They can arrange for antibiotic to be delivered to the patient's home between 12 and 2pm and for SOC to be tomorrow afternoon. Nurse would not be available for 1800 treatment today.
[2019-11-06] MEDS: ERTAPENEM SOD INJ 0.5 GM in SODIUM CHL 0.9% 50 ML IV SCH (17:12)
[2019-11-06] MEDS ORDERED: EPOETIN ALFA 4,000 UNIT/ML VL SC ONE (21:00)
[2019-11-06 22:00] VITALS: BP 140/75
[2019-11-07] MEDS: InsuLIN REG 1unit/0.01ml Soln (100units/ml) SC SCH ×3 (00:09→12:53)
[2019-11-07] MEDS: NYSTATIN-TRIAMCINOLONE TOPICAL CRE 15GM TOP SCH ×2 (00:10→09:55)
--- NOTE | 2019-11-07 02:00 | NUR ---
MIDLINE DRESSING CHANGE Noted that dressing had been partially removed from midline site. Cleaned/replaced midline dressing using sterile technique. No redness, swelling, or pain to site. Patient tolerated well.
[2019-11-07 05:00] VITALS: BP 139/71
[2019-11-07] MEDS: LEVOTHYROXINE SODIUM 25 MCG TAB PO SCH (05:48)
[2019-11-07] MEDS: SODIUM CHLOR 0.9% PF (SALINE LOCK) 10ML VIAL/SYR IV SCH (05:48)
[2019-11-07] MEDS: ACCU-CHEK COMFORT CURVE STRIP VI SCH ×2 (05:49→12:22)
--- NOTE | 2019-11-07 06:30 | NUR ---
LEFT FOOT DRESSING CHANGE Removed gauze dressing with sterile saline. Cleaned wound with Dakins per orders. Applied 4X4 gauze dressings WTD. Wrapped with kerlix held by tape. Covered dressing with stocking net. Patient tolerated well.
[2019-11-07] MEDS: SEVELAMER 800 MG TAB PO SCH ×2 (08:07→12:22)
[2019-11-07 08:42] VITALS: BP 136/80
[2019-11-07] MEDS: ENOXAPARIN SOD 30 MG/0.3 ML SYRINGE SC SCH (09:53)
[2019-11-07] MEDS: AMPICILLIN & SULBACTAM SODIUM 3 GM in SODIUM CHL 0.9% 100 ML IV SCH (09:53)
[2019-11-07] MEDS: amLODIPine BESYLATE 5 MG TAB PO SCH (09:54)
[2019-11-07] MEDS: DAKINS QUARTER STR 0.125% (NaHypochlorite) 473 ML TOPICAL SOL TOP SCH (09:55)
--- NOTE | 2019-11-07 09:55 | NUR ---
8655 11/07/19 - Spoke with [facility] coordinator Cindy at [phone], who stated she had spoken with patient and provided some virtual teaching. Cindy also stated IV supplies would be delivered to patient's home between 7-10.
--- NOTE | 2019-11-07 10:12 | NUR ---
D/C Planning Regarding social service consult for home IV abx and wound care. faxed updated order to [facility]. Placed follow up called to Homa with [facility] advising her patient will be discharging home today. Per Homa with [facility] they will see patient within 24hrs upon d/c day.
[2019-11-07 11:50] VITALS: BP 136/80
[2019-11-07] MEDS: ERTAPENEM SOD INJ 0.5 GM in SODIUM CHL 0.9% 50 ML IV SCH (12:49)
--- NOTE | 2019-11-07 14:00 | NUR ---
Discharge instructions given as ordered. Encourage to follow up with DR. SUJATA HERNANDEZ ON 11/11/19 AT 1445PM as instructed PT IS AWARE OF HER DIALYSIS SCHEDULE ON MONDAY AT 1345PM. All questions and concerns addressed. Patient verbalized understanding. Medication reconciliation form completed and copy given to patient. Home medications held in Pharmacy returned to patient. DISCHARGED WITH [facility]LINE FOR HOME IV ANTIBIOTIC. Telemetry unit returned to ICU. Patient taken to vehicle via wheelchair with all personal belongings, accompanied by staff and family member. No distress noted at time of departure.
[2019-11-08] MEDS ORDERED: SODIUM CHL 0.9% 1000 ML BAG XX ONE (07:00)
[2019-11-08] MEDS ORDERED: EPOETIN ALFA 4,000 UNIT/ML VL SC ONE (21:00)
== END 2019-11-07 14:00 | disposition home health service (06) | DRG 194 ==
LOC: EDUNIT# 13:51 → ER 13:51 → EDBD 13:51 → TELE 13:52 → TELE-CENTR 21:15
PROVIDERS: ADMIT Internal Medicine; ATTEND Internal Medicine
PROC: 5A1D70Z Performance of Urinary Filtration, Intermittent, Less than 6 Hours Per Day (ICD-10-PCS; 2019-10-31)
PROC: 5A1D70Z Performance of Urinary Filtration, Intermittent, Less than 6 Hours Per Day (ICD-10-PCS; 2019-11-01)
PROC: 0HBNXZZ Excision of Left Foot Skin, External Approach (ICD-10-PCS; 2019-11-01)
PROC: 5A1D70Z Performance of Urinary Filtration, Intermittent, Less than 6 Hours Per Day (ICD-10-PCS; 2019-11-04)
PROC: 5A1D70Z Performance of Urinary Filtration, Intermittent, Less than 6 Hours Per Day (ICD-10-PCS; principal; 2019-11-06)
DX: I13.2 Hypertensive heart and chronic kidney disease with heart failure and with stage 5 chronic kidney disease, or end stage renal disease (principal); L97.529 Non-pressure chronic ulcer of other part of left foot with unspecified severity; E11.621 Type 2 diabetes mellitus with foot ulcer; E11.65 Type 2 diabetes mellitus with hyperglycemia; N18.6 End stage renal disease; E66.01 Morbid (severe) obesity due to excess calories; J96.10 Chronic respiratory failure, unspecified whether with hypoxia or hypercapnia; Z99.2 Dependence on renal dialysis; E20.9 Hypoparathyroidism, unspecified; B35.3 Tinea pedis; N25.81 Secondary hyperparathyroidism of renal origin; L08.9 Local infection of the skin and subcutaneous tissue, unspecified; I89.0 Lymphedema, not elsewhere classified; G47.33 Obstructive sleep apnea (adult) (pediatric); D63.1 Anemia in chronic kidney disease; E11.22 Type 2 diabetes mellitus with diabetic chronic kidney disease; E11.622 Type 2 diabetes mellitus with other skin ulcer; E11.69 Type 2 diabetes mellitus with other specified complication; E78.5 Hyperlipidemia, unspecified; E44.0 Moderate protein-calorie malnutrition; M86.8X7 Other osteomyelitis, ankle and foot; M00.9 Pyogenic arthritis, unspecified; N39.0 Urinary tract infection, site not specified; Z16.12 Extended spectrum beta lactamase (ESBL) resistance; Z83.3 Family history of diabetes mellitus; Z88.8 Allergy status to other drugs, medicaments and biological substances; Z87.01 Personal history of pneumonia (recurrent); I50.32 Chronic diastolic (congestive) heart failure; N17.1 Acute kidney failure with acute cortical necrosis; Z68.41 Body mass index [BMI] 40.0-44.9, adult; L89.890 Pressure ulcer of other site, unstageable
CPT/HCPCS: 36415; 70450; 71045; 73700; 80048; 80053; 80074; 80307; 81001; 82140; 82306; 82607; 82746; 82962; 83036; 83540; 83550; 83735; 83970; 84100; 84439; 84443; 84484; 84550; 85007; 85025; 85027; 85652; 86141; 86200; 86431; 86850; 86900; 86901; 87086; 87088; 87186; 90935; 93005; 93306; 96374; G0378; J0696; J0885; J1335; J1642; J1815; Q9956

== ENCOUNTER → 2019-12-10 | Emergency (ER) | payer MEDICAID ==
[~2019-12-10] MED LIST: ADENOSINE 6 MG/2 ML INJ IV ONE; AMIODARONE HCL (50 MG/ ML) 3 ML VIAL IV ONE; CALCIUM CHLOR(10%) 100MG/ML 10ML SYRINGE IV ONE; CALCIUM GLUC 4.65meq/50ml D5AE 50 ML IV ONE; CHOL1TAB16 PO; DILT240C46 PO; EPINEPHrine HCL 1 MG/10 ML SYRG IV ONE; FERR325T20 PO; FURO80TA3 PO; INSU100I44 SC; INSU1INJ19 SC; METO5TAB56 PO; NIFE1TAB30 PO; POTASSIUM CHL 20MEQ/100ML 100 ML IV ONE; SODIUM BICARBONATE 8.4 % INJ 50ML VIAL IV ONE; SODIUM BICARBONATE 8.4% INJ 50ML SYRINGE IV ONE
== END | disposition expired ==
LOC: EDUNIT# 15:04 → EDBD 15:15 → ER 15:15
DX: I46.9 Cardiac arrest, cause unspecified (principal); J96.90 Respiratory failure, unspecified, unspecified whether with hypoxia or hypercapnia; I12.9 Hypertensive chronic kidney disease with stage 1 through stage 4 chronic kidney disease, or unspecified chronic kidney disease; E11.22 Type 2 diabetes mellitus with diabetic chronic kidney disease; N18.9 Chronic kidney disease, unspecified; E78.5 Hyperlipidemia, unspecified; Z86.2 Personal history of diseases of the blood and blood-forming organs and certain disorders involving the immune mechanism; Z99.2 Dependence on renal dialysis; Z79.899 Other long term (current) drug therapy; Z88.6 Allergy status to analgesic agent
CPT/HCPCS: 92950; 99285; J0153; J0171; J0282; J0610; J3480